=== PATIENT | female | born 1930 | race African-American/Black ===

== ENCOUNTER 2016-06-03 06:42 | Day surgery (SDC) | payer MEDICARE, OTHER ==
[~2016-06-03 06:42] MED LIST: ACETAMINOPHEN 1000MG/100 ML PREMIX IV ONE; CEFAZOLIN 2 Gram 50 ML IVPB ONE; FAMOTIDINE 20MG TABLET PO ONE; MECLIZINE 25 MG TABLET PO ONE; METOCLOPRAMIDE 10 MG TABLET PO ONE
--- NOTE | 2016-06-03 07:33 | History and Physical Report ---
CHIEF COMPLAINT/HISTORY OF CHIEF COMPLAINT: This patient presents with a history of an intractable post laminectomy syndrome with an implanted spinal opioid infusion system in place. Over the last several months this patient has had her spinal infusion slowly titrated down to its current starting point for removal of the system. This because of peripheral edema which seemed to be unresponsive to treatments and felt to be related to the spinal opioid infusion. PAST MEDICAL HISTORY: Hypertension and post herpetic neuralgia. PAST SURGICAL HISTORY: Hysterectomy, mastectomy, knee replacement, gallbladder surgery, lumbar laminectomy, and pump implant. MEDICATIONS ON ADMISSION: List to be provided. ALLERGIES: None listed. SOCIAL HISTORY: Noncontributory. FAMILY HISTORY: Coronary artery disease and cancer. SYSTEMS REVIEW: The patient is appropriate in no acute distress. The remainder of the systems review is mostly gleaned from the who appears to be the primary spokesman. This includes blood pressure, depression, and difficulty sleeping. PHYSICAL EXAMINATION: Height is 5'5", weight is 170. No vital signs. HEENT: Within normal limits. LUNGS: Clear. HEART: Regular rate and rhythm. ABDOMEN: Nontender. MUSCULOSKELETAL: Examination of the musculoskeletal system shows the pump in the right posterior gluteal margin with the midline catheter incision approximating L3. All incisions are intact. Sensory field is intact. NEUROLOGICAL: Cranial nerves are intact. IMPRESSION: 1. POST LUMBAR LAMINECTOMY SYNDROME, ICD10 CODE M96.1. 2. LUMBAR RADICULITIS, ICD10 CODE M54.16 AND M54.17. 3. IMPLANTED SPINAL INFUSION SYSTEM NONFUNCTIONAL. PLAN: The patient is here for removal of the implanted spinal catheter and pump on an outpatient basis. Potential risks, side effects, and complications were carefully reviewed and discussed. Manny GUTHRIE D.O. Date & Time JOB NUMBER: [id number] [facility]ITAL[facility]um[facility]
[2016-06-03 07:34] LABS: PARTIAL THROMBOPLASTIN TIME 27.7 SECONDS (24.5-39.1)
[2016-06-03] MEDS ORDERED: BUPIVACAINE 0.5% W/EPI MPF 30 ML VIAL IVP ONE (13:05)
[2016-06-03] MEDS ORDERED: CEFAZOLIN 1G VIAL IM ONE (13:05)
[2016-06-03] MEDS ORDERED: LIDOCAINE 1% W/EPI 1:200,000 MPF 30ML SQ ONE (13:05)
[2016-06-03] MEDS ORDERED: HYDROCODONE/APAP 7.5/325MG TABLET PO ONE (13:05)
[2016-06-03] MEDS ORDERED: LIDOCAINE 2% MDV (20MG/ML) 20ML VIAL IV ONE (14:51)
[2016-06-03] MEDS ORDERED: MIDAZOLAM HCL 2MG/2ML VIAL IV ONE (14:51)
[2016-06-03] MEDS ORDERED: PROPOFOL 10 MG/ML VIAL IV ONE (14:51)
[2016-06-03] MEDS ORDERED: FENTANYL PF 100MCG/2ML VIAL IV ONE (14:51)
--- NOTE | 2016-06-03 16:44 | Operative Note - [place] ---
DATE OF SURGERY: 06/03/16 PREOPERATIVE DIAGNOSES: 1. POST LUMBAR LAMINECTOMY SYNDROME, ICD-10 CODE = M96.1. 2. LUMBAR RADICULITIS, ICD-10 CODE = M54.17. 3. IMPLANTED SPINAL INFUSION SYSTEM, NONFUNCTIONAL. OPERATION: 1. INCISION, SUBCUTANEOUS DISSECTION, AND REMOVAL OF SPINAL CATHETER. 2. INCISION, SUBCUTANEOUS DISSECTION, AND REMOVAL OF IMPLANTED SPINAL OPIOID INFUSION DEVICE. SURGEON: NAVEEN GUTHRIE D.O. ANESTHESIA: LOCAL SEDATION. ANESTHESIA PROVIDER: MAE KILLIAN CRNA. INDICATION: This patient presents with a history of intractable lumbar radiculitis. An intraspinal infusion system with Hydromorphone had been placed and although initially successful, she developed peripheral edema, which was unresponsive to conservative and aggressive efforts. The infusion was slowly titrated down for its removal today. PROCEDURE: Intravenous line, vital sign monitoring, IV sedation, prepped and draped with sterile technique. Patient position prone. Sterile prep. Sterile technique. Under imaging, the insertion site for the spinal catheter and its anchor infiltrated, incision made, and subcutaneous dissection was conducted to the anchor and its suture. The suture and the anchor were removed intact. A pursestring suture was placed to stop CSF leak as the catheter was removed. The interface between the implanted the catheter and the pump catheter slightly right of the midline infiltrated, incision made, and subcutaneous dissection was conducted to the interface connector. The connector and the secondary catheter was removed intact. At the right posterior gluteal margin pump pouch site, incision made, subcutaneous dissection was conducted to the pouch. The pump and the Dacron sleeve were removed intact. Antibiotic irrigation. Bovie for hemostasis. The incisions were all closed Vicryl for fascia and a running subcuticular Vicryl for skin. A Dermabond closure system was placed. She was transported to the Recovery Room, stable, showing no side-effects from the procedure or the sedation. DISCHARGE INSTRUCTIONS: 1. The sites will remain clean and dry although the Dermabond will allow showering. 2. Standard medications resumed including Levaquin, the antibiotic, 500 mg once a day for 14 days. Should she not tolerate the antibiotic, she should contact the clinic for substitution. An antibiotic is required. 3. All other instructions provided, numbers to contact, problems given. She should keep her activities low until she is seen in the office in 5-7 days. Limit bend, lift, push, pull, and any aggressive physical activity. NAVEEN GUTHRIE D.O. Date & Time cc: Dr. Haskins JOB NUMBER: [id number] MTDD
== END 2016-06-03 10:05 | disposition home or self-care (01) ==
LOC: SUR 06:42
PROVIDERS: ATTEND Pain Medicine Interventional Pain Medicine
DX: T85.695A Other mechanical complication of other nervous system device, implant or graft, initial encounter (principal); M96.1 Postlaminectomy syndrome, not elsewhere classified; M54.17 Radiculopathy, lumbosacral region; I10 Essential (primary) hypertension; E78.00 Pure hypercholesterolemia, unspecified
CPT/HCPCS: 85730; 85002; 62365; 62355; 00300; J3010; J0690